=== PATIENT | female | born 1980 | race Asian ===

== ENCOUNTER 2019-07-20 07:20 | Emergency (ER) | END 2019-07-20 08:45 | disposition home or self-care (01) | DX: R55 Syncope and collapse (principal) ==

== ENCOUNTER 2019-08-02 09:23 | Outpatient (CLI) | payer BC, OTHER ==
[~2019-08-02 09:23] MED LIST: DEXT15SY3 PO
[2019-08-02 10:02] LABS: *BILIRUBIN,URIN NEGATIVE (NEGATIVE); *BLOOD, URINE NEGATIVE (NEGATIVE); *CLARITY,URINE CLEAR (CLEAR); *COLOR,URINE YELLOW (YELLOW); *KETONES,URINE NEGATIVE (NEGATIVE); *UROBILINOGEN,URINE 0.2 E.U./dl (NORMAL); BASOPHILS % (AUTO) 0.3 % (0.0-2.0); EOSINOPHILS % (AUTO) 0.3 % (0.0-7.0); HEMATOCRIT 39.9 % (31.2-41.9); HEMOGLOBIN 13.2 g/dL (10.9-14.3); LEUKOCYTE ESTERASE ,URINE NEGATIVE (NEGATIVE); LYMPHOCYTES # (AUTO) 1.7 K/uL (20.0-40.0); LYMPHOCYTES % (AUTO) 26.7 % (20.5-51.5); MEAN CORPUSCULAR HEMOGLOBIN 29.8 uug (24.7-32.8); MEAN CORPUSCULAR HGB CONC 33 g/dL (32.3-35.6); MONOCYTES # (AUTO) 0.4 K/uL (2.0-10.0); MONOCYTES % (AUTO) 5.9 % (0.0-11.0); NEUTROPHILS # (AUTO) 4.2 K/uL (1.8-8.9); NEUTROPHILS % (AUTO) 66.8 % (38.5-71.5); NITRITE, URINE NEGATIVE (NEGATIVE); PH,URINE 5.5 (5.0-8.0); PLATELET COUNT (AUTO) 279 K/uL (179-408); RED BLOOD CELL COUNT(AUTO) 4.43 MIL/uL (3.63-4.92); UGLUCOSE NEGATIVE (NEGATIVE); WHITE BLOOD COUNT (AUTO) 6.3 K/uL (3.8-11.8)
[2019-08-02 10:30] LABS: THYROID STIMULATING HORMONE 2.014 mIU/mL (0.358-3.740)
[2019-08-02 11:59] LABS: BILIRUBIN,TOTAL 0.6 mg/dL (0.2-1.0); CREATININE 0.7 mg/dL (0.6-1.3); POTASSIUM 3.9 mmol/L (3.5-5.1); TOTAL PROTEIN, SERUM 7.9 g/dL (6.4-8.2)
== END 2019-08-02 23:59 | disposition home or self-care (01) ==
LOC: LAB 09:23
PROVIDERS: ATTEND Internal Medicine
DX: R55 Syncope and collapse (principal)
CPT/HCPCS: 36415; 82306; 84443; 85025; 85651; 86140; 87086

== ENCOUNTER 2020-09-21 09:39 | Emergency (ER) | payer BC, OTHER ==
[~2020-09-21] VITALS: Ht 157.5 cm; Wt 47.6 kg
[2020-09-21] MEDS ORDERED: SULFAMETH/TRIMETH 800/160 MG TABLET PO ONE (10:00)
[2020-09-21] MEDS ORDERED: SULF-11 PO (10:03)
--- NOTE | 2020-09-21 10:08 | NUR ---
Gave pt RX and d/c instructions, pt verbalized understanding.
[2020-09-21] MEDS ORDERED: SULFAMETH/TRIMETH 800/160 MG TABLET ONE (10:11)
== END 2020-09-21 10:13 | disposition home or self-care (01) ==
LOC: ER 09:39
DX: L03.011 Cellulitis of right finger (principal)
CPT/HCPCS: A4663

== ENCOUNTER 2022-08-22 09:28 | Emergency (ER) | payer BC, OTHER ==
[~2022-08-22] VITALS: Ht 157.5 cm; Wt 61.7 kg
[~2022-08-22 09:28] MED LIST changes: +SULF-11 PO
--- NOTE | 2022-08-22 09:38 | NUR ---
DR LOWRY AT BEDSIDE FOR EVALUATION.
[2022-08-22 09:52] LABS: MEAN CORPUSCULAR HEMOGLOBIN 29.9 uug (24.7-32.8); MEAN CORPUSCULAR VOLUME 89.1 fL (75.5-95.3); PLATELET COUNT (AUTO) 301 K/uL (179-408)
[2022-08-22 09:53] LABS: *BILIRUBIN,URIN NEGATIVE (NEGATIVE); *BLOOD, URINE 2+ (NEGATIVE); *CLARITY,URINE CLEAR (CLEAR); *COLOR,URINE YELLOW (YELLOW); *KETONES,URINE NEGATIVE (NEGATIVE); *UROBILINOGEN,URINE 0.2 E.U./dl (NORMAL); LEUKOCYTE ESTERASE ,URINE NEGATIVE (NEGATIVE); NITRITE, URINE NEGATIVE (NEGATIVE); UGLUCOSE NEGATIVE (NEGATIVE)
[2022-08-22 09:56] LABS: *URINE HCG, QUAL NEG (NEGATIVE)
[2022-08-22 10:05] LABS: BILIRUBIN,DIRECT 0.1 mg/dL (0.0-0.2); BILIRUBIN,TOTAL 0.4 mg/dL (0.2-1.0); CREATININE 0.9 mg/dL (0.6-1.3); POTASSIUM 4.2 mmol/L (3.5-5.1); TOTAL PROTEIN, SERUM 7.5 g/dL (6.4-8.2)
--- NOTE | 2022-08-22 10:33 | NUR ---
Patient discharged to home in stable condition. Written and verbal after care instructions given. Patient verbalizes understanding of instructions. Stressed follow up or return to ER for worsening s/s.
[2022-08-22 12:18] LABS: BACTERIA,URINE FEW /HPF (NONE SEEN); RBC,URINE NONE SEEN /HPF (0-3); SQUAMOUS EPITHELIAL CELL,UR FEW /HPF (NONE SEEN); WBC,URINE NONE SEEN /HPF (0-3)
== END 2022-08-22 10:33 | disposition home or self-care (01) ==
LOC: ER 09:30
DX: R53.83 Other fatigue (principal)
CPT/HCPCS: 36415; 83690; 84443; 84703; 85025; 93005; A4663

== ENCOUNTER 2022-08-31 08:36 | Outpatient (CLI) | payer BC, OTHER ==
[2022-08-31 10:31] LABS: THYROID STIMULATING HORMONE 4.441 mIU/mL (0.358-3.740)
== END 2022-08-31 23:59 | disposition home or self-care (01) ==
LOC: LAB 08:36
PROVIDERS: ATTEND Legal Medicine
DX: R53.1 Weakness (principal); E03.9 Hypothyroidism, unspecified; R07.9 Chest pain, unspecified; R10.9 Unspecified abdominal pain
CPT/HCPCS: 36415; 71250; 82746; 83550; 84443; 85651; 86038; 86140

== ENCOUNTER 2024-03-19 08:28 | Emergency (ER) | payer BC ==
[~2024-03-19] VITALS: Ht 154.9 cm; Wt 55.3 kg
[2024-03-19 09:14] LABS: BASOPHILS % (AUTO) 0.5 % (0.0-2.0); EOSINOPHILS % (AUTO) 0.3 % (0.0-7.0); HEMATOCRIT 36.8 % (31.2-41.9); HEMOGLOBIN 12.5 g/dL (10.9-14.3); LYMPHOCYTES # (AUTO) 2.2 K/uL (0.8-4.8); LYMPHOCYTES % (AUTO) 32.8 % (20.5-51.5); MEAN CORPUSCULAR HEMOGLOBIN 30.5 uug (24.7-32.8); MEAN CORPUSCULAR HGB CONC 34 g/dL (32.3-35.6); MEAN CORPUSCULAR VOLUME 89.7 fL (75.5-95.3); MONOCYTES # (AUTO) 0.5 K/uL (0.1-1.30); MONOCYTES % (AUTO) 7.2 % (0.0-11.0); NEUTROPHILS # (AUTO) 3.9 K/uL (1.8-8.9); NEUTROPHILS % (AUTO) 59.2 % (38.5-71.5); PLATELET COUNT (AUTO) 299 K/uL (179-408); RED CELL DISTRIBUTION WIDTH 12.9 % (12.3-17.7); WHITE BLOOD COUNT (AUTO) 6.7 K/uL (3.8-11.8)
[2024-03-19 09:16] LABS: DIFFERENTIAL COMMENT 1
[2024-03-19 09:23] LABS: CALCIUM 8.7 mg/dL (8.5-10.1); CREATININE 0.7 mg/dL (0.6-1.3); POTASSIUM 4.1 mmol/L (3.5-5.1)
[2024-03-19] MEDS ORDERED: HYDROCODONE BIT/HOMATROPINE 5 ML UDC ONE (09:33)
[2024-03-19] MEDS: HYDROCODONE BIT/HOMATROPINE 5 ML UDC PO ONE (09:36)
[2024-03-19 09:37] LABS: ALBUMIN 3.7 g/dL (3.4-5.0); BILIRUBIN,TOTAL 0.6 mg/dL (0.2-1.0); TOTAL PROTEIN, SERUM 7.2 g/dL (6.4-8.2)
[2024-03-19] MEDS ORDERED: HYDR473S4 PO (09:48)
[2024-03-19] MEDS ORDERED: CETI10TA14 PO (09:48)
[2024-03-19] MEDS ORDERED: MOME17SP BNOSTRILS (09:48)
[2024-03-19 10:03] VITALS: BP 134/79; TEMP 98.1; O2SAT 98
== END 2024-03-19 10:05 | disposition home or self-care (01) ==
LOC: ER 08:30
DX: R07.89 Other chest pain (principal); G47.8 Other sleep disorders; F51.9 Sleep disorder not due to a substance or known physiological condition, unspecified; Z20.822 Contact with and (suspected) exposure to COVID-19; Z79.891 Long term (current) use of opiate analgesic; Z79.899 Other long term (current) drug therapy
CPT/HCPCS: 36415; 71045; 85025; 86403; 93005; A4606; A4663